=== PATIENT | male | born 1960 | race Caucasian/White ===

== ENCOUNTER 2019-12-24 12:12 | Emergency (ER) | payer MEDICARE, OTHER ==
[~2019-12-24] VITALS: Ht 175.3 cm; Wt 81.8 kg
[~2019-12-24 12:12] MED LIST: DICL100G15 TOP
== END 2019-12-25 17:45 | disposition left against medical advice (07) ==
LOC: ER 12-25 17:27
DX: M79.662 Pain in left lower leg (principal); Z53.21 Procedure and treatment not carried out due to patient leaving prior to being seen by health care provider

== ENCOUNTER 2024-09-22 16:48 | Emergency (ER) | payer BC, OTHER ==
[~2024-09-22 16:48] MED LIST changes: +APIX5TAB3 PO; -DICL100G15 TOP; +NICO-631 TD; +PANT40TA54 PO; +POTA-207 PO; +SILD100T70 PO; +TAMS-55 PO
== END 2024-09-22 18:04 | disposition left against medical advice (07) ==
LOC: ER 16:50
DX: L02.91 Cutaneous abscess, unspecified (principal); Z53.21 Procedure and treatment not carried out due to patient leaving prior to being seen by health care provider

== ENCOUNTER 2024-10-28 23:18 | Emergency (ER) | payer BC, OTHER ==
[~2024-10-28] VITALS: Ht 175.3 cm; Wt 70.5 kg
[2024-10-28 23:22] VITALS: TEMP 98.7
--- NOTE | 2024-10-28 23:41 | ELECTROCARDIOGRAPH REPORT ---
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
--- NOTE | 2024-10-29 00:38 | Physician Documentation ---
History of Present Illness ~ Chief Complaint: Shortness of Breath Stated Complaint: SOB Time Seen by MD: 00:33 Primary Medical Doctor: NONE HPI 64-year-old male, presenting with chest tightness and shortness of breath. He tells [place], when he started to feel lightheaded and dizzy. He sat down, he then marked out to his car to leave, and started to feel the sensation of chest tightness. He states it was hard to take a deep breath. He came into get checked out. He denies any other symptoms at that time. He denies any syncope, abdominal pain, nausea, sweating, palpitations, leg pain or swelling. He reports a history of some type of heart problem and or possibly a mass in his chest. He was supposed to get an endoscopy, but this never happened. Currently he states he feels quite a bit better. Medication Reconciliation Allergies: Coded Allergies: No Known Allergies (Unverified , 10/28/24) Scheduled Aspirin (Aspirin EC), 1 TAB PO DAILY, (Reported) Atorvastatin Calcium (Atorvastatin Calcium), 1 TAB PO DAILY, (Reported) Carvedilol (Carvedilol), 1 TAB PO BID, (Reported) Prednisone* (Prednisone*), 2 TAB PO DAILY Tamsulosin Hcl* (Flomax*), 1 TAB PO DAILY, (Reported) Scheduled PRN Sildenafil Citrate (Sildenafil Citrate), 0.5 TAB PO DAILY PRN for Per Protocol, (Reported) albuterol inhaler (Pro-Air Inhaler), 2 PUFFS INH Q4HPRN PRN for wheezing Miscellaneous Medications Tamsulosin Hcl* (Flomax*), 0.4 MG PO, (Reported) Discontinued Medications Apixaban (Eliquis), 5 MG PO BID Discontinued Reason: patient no longer taking Nicotine 14 MG Patch* (Habitrol 14 MG Patch*), 1 PATCH TD DAILY Discontinued Reason: patient no longer taking Pantoprazole Sodium (Pantoprazole Sodium), 40 MG PO BID Discontinued Reason: patient no longer taking Potassium Chloride* (K-Dur*), 1 TAB PO DAILY Discontinued Reason: patient no longer taking Past Medical History Past Medical History: No Pertinent History Past Surgical History: no surgical history Patient History: FH: alcoholism FATHER, MOTHER, Brother sister Alcohol Use: None Drug Use: methamphetamine Lives with: S/O Lives In: Home Occupation: employed Review of Systems Constitutional: Denies: fever Respiratory: Reports: shortness of breath Cardiovascular: Reports: chest pain Neurological: Reports: dizziness Physical Exam Vital Signs: Temperature: 98.7, Source: Oral, Heart Rate: 88, Respiratory Rate: 16, BP: 155/84, Pulse Oximetry: 94, Weight: 70.450 Physical Exam General: This is an overall well-appearing middle-aged man, not in distress HEENT: Atraumatic, oropharynx is moist Heart: Regular rate and rhythm, no murmur, normal-appearing peripheral perfusion Lungs: Clear breath sounds bilateral, normal work of breathing, normal oxygen saturation on room air Abdomen: Soft, nondistended, nontender all quadrants Extremities: Warm and well-perfused, no edema, no posterior calf tenderness Neuro: Alert and oriented, no focal deficits Psychiatric: Calm and cooperative with exam Progress Results/Orders Results/Orders Orders - QING WALLS MD Chest,Two Views (10/29/24 00:33) Cta Chest Pe (10/29/24 02:00) Completed Orders - QING WALLS MD Electrocardiogram (10/28/24 23:26) Cbc/Diff (10/29/24 00:33) D-Dimer (10/29/24 00:33) Chest,Two Views (10/29/24 00:33) Electrocardiogram (10/29/24 00:33) Hs Troponin I W Calculations (10/29/24 00:33) Hs Troponin I W Calculations (10/29/24 02:33) CMP (10/29/24 00:33) Cta Chest Pe (10/29/24 02:00) Iohexol 350mg/Ml 100ml (Omnipaque 350mg/ (10/29/24 02:03) Ipratropium/Albuterol Nebule (Ipratrop/A (10/29/24 03:13) Methylprednisolone Sod Succ (Solumedrol (10/29/24 04:05) Medications Received in ER Medications (Trade) Dose Ordered Sig/[place] Route PRN Reason Start Time Stop Time Status Last Admin Dose Admin (ipratrop/ albuterol 0.5-3(2.5) MG/3ml nebule) 3 ml ONCE STAT NEB 10/29/24 03:13 10/29/24 03:17 DC 10/29/24 03:23 3 ML (SoluMEDROL 125mg inj) 125 mg ONCE ONCE IV 10/29/24 04:05 10/29/24 04:06 DC 10/29/24 04:06 125 MG Vital Signs 10/28/24 10/29/24 10/29/24 10/29/24 23:22 00:24 01:33 01:45 Temp 98.7 Pulse 88 120 112 Resp 20 16 19 26 B/P (MAP) 155/84 127/97 (107) 103/61 (75) Pulse Ox 94 93 94 O2 Flow Rate 0 2.0 10/29/24 10/29/24 10/29/24 10/29/24 03:04 03:15 03:24 03:30 Pulse 112 115 114 Resp 26 29 18 22 B/P (MAP) 106/77 (87) Pulse Ox 95 96 100 O2 Delivery Room Air* Room Air* O2 Flow Rate 2.0 0 FiO2 N/A N/A Laboratory Tests Test 10/29/24 00:43 10/29/24 03:14 White Blood Count 18.6 H Red Blood Count 5.02 Hemoglobin 14.7 Hematocrit 43.9 Mean Corpuscular Volume 87.5 Mean Corpuscular Hemoglobin 29.3 Mean Corpuscular Hemoglobin Concent 33.5 Red Cell Distribution Width 15.7 H Platelet Count 363 Mean Platelet Volume 7.4 Neutrophils (%) (Auto) 76.0 H Lymphocytes (%) (Auto) 13.2 L Monocytes (%) (Auto) 5.2 Eosinophils (%) (Auto) 5.2 Basophils (%) (Auto) 0.4 Neutrophils # (Auto) 14.1 H Lymphocytes # (Auto) 2.5 Monocytes # (Auto) 1.0 H Eosinophils # (Auto) 1.0 H Basophils # (Auto) 0.1 CBC Comment D-Dimer 0.40 D-Dimer Comment Sodium Level 141 Potassium Level 4.0 Chloride Level 104 Carbon Dioxide Level 29.1 Anion Gap 8 Blood Urea Nitrogen 17 Creatinine 1.18 H Estimated GFR/1.73 m2 62 BUN/Creatinine Ratio 14.4 Glucose Level 112 H Calcium Level 8.9 Total Bilirubin 0.8 Aspartate Amino Transf (AST/SGOT) 20 Alanine Aminotransferase (ALT/SGPT) 23 Alkaline Phosphatase 93 Troponin I High Sensitivity 160 *H 147 *H Total Protein 7.8 Albumin 3.8 Globulin 4.0 Albumin/Globulin Ratio 1.0 L Chemistry Comments Troponin I High Sens Percent Delta 8 Troponin I Hi Sens Absolute Change -13 EKG/XRAY/CT/US/VASC/MRI EKG : Additional Comment I personally interpreted the EKG and this shows: Sinus tachycardic, rate 98, QTC 477, ST depression in leads V3 V4 through V5, T-wave inversion in inferior leads, no STEMI Chest X-Ray : Additional Comments I personally reviewed the x-ray, and it shows: No acute process including no focal consolidation, no mediastinal widening CT : Impression I personally reviewed the CT scan, and this shows no focal consolidation or pneumonia, no pulmonary edema, no PE Medical Decision Making Additional info obtained from: old records Findings I reviewed the patient's last admission, the patient was admitted in the past for stomach and chest pain, found to have right-sided heart failure. At that time his troponins were slightly elevated in the 100s range. Differential Dx:Considerations: Include: anxiety, asthma, bronchitis, cardiogenic shock, CHF, COPD, dysrhythmia, myocardial infarction, panic attack, pulmonary embolism, upper resp. infection Assessment The patient presents with an episode of shortness of breath and chest tightness. He does have a long history of smoking tobacco, and likely has some form of undiagnosed COPD. He was given a breathing treatment with improvement. His EKG does show some possibly concerning changes. His troponin is slightly elevated, however his repeat troponin is similar. Repeat EKG also shows no dynamic changes. On chart review he does have a history of a dilated heart and at his last admission he also had similarly elevated troponins. I suspect this is chronic. I doubt ACS as the primary cause of his symptoms today. His chest x- ray also shows no focal consolidation. A CT scan of the chest was then obtained which shows no PE or other acute abnormality as well. Given his significant improvement with breathing treatments, I suspect that this is undiagnosed COPD. He will be treated with steroids and given an albuterol inhaler. He was given outpatient follow up instructions and return precautions. Departure Time of Disposition: 04:43 Disposition: HOME / SELF CARE / HOMELESS Impression: Primary Impression: Acute exacerbation of chronic obstructive airways disease Condition: Improved Discharge Instructions: Chronic Obstructive Pulmonary Disease Exacerbation Referrals: NO PRIMARY CARE PROVIDER (PCP) Prescriptions Prednisone* (Prednisone*) 20 Mg Tablet 2 TAB PO DAILY for 4 Days, #8 TAB Prov: QING WALLS MD 10/29/24 albuterol inhaler (Pro-Air Inhaler) 8.5 Gm Inhaler 2 PUFFS INH Q4HPRN PRN for wheezing for 30 Days, #18 GM Prov: QING WALLS MD 10/29/24 albuterol inhaler (Pro-Air Inhaler) 8.5 Gm Inhaler 2 PUFFS INH Q4HPRN PRN for wheezing for 30 Days, #18 GM Prov: QING WALLS MD 10/29/24 Prednisone* (Prednisone*) 20 Mg Tablet 2 TAB PO DAILY for 4 Days, #8 TAB Prov: QING WALLS MD 10/29/24 Education Educated: Patient Educated regarding: diagnosis, treatment, need for follow up Signature Scribe Signature: [email or web address] Attestation: QING Fink MD Oct 29, 2024 00:38
[2024-10-29 00:49] LABS: BASOPHILS # (AUTO) 0.1 X10'3 (0-0.2); BASOPHILS % (AUTO) 0.4 % (0-1); EOSINOPHILS % (AUTO) 5.2 % (0-6); HEMATOCRIT 43.9 % (42.0-52.0); HEMOGLOBIN 14.7 g/dl (14.0-17.9); LYMPHOCYTES # (AUTO) 2.5 X10'3 (1.1-4.8); LYMPHOCYTES % (AUTO) 13.2 % (21-51); MEAN CORPUSCULAR HEMOGLOBIN 29.3 PG (27.0-31.0); MEAN CORPUSCULAR HGB CONC 33.5 g/dL (33.0-36.5); MEAN CORPUSCULAR VOLUME 87.5 FL (78-98); MEAN PLATELET VOLUME 7.4 FL (7.4-10.4); MONOCYTES % (AUTO) 5.2 % (2-12); NEUTROPHILS # (AUTO) 14.1 X10'3 (1.8-7.7); PLATELET COUNT 363 X10'3 (140-440); RED BLOOD COUNT 5.02 X10'6 (4.70-6.10); RED CELL DISTRIBUTION WIDTH 15.7 % (11.5-14.5); WHITE BLOOD COUNT 18.6 X10'3 (4.5-11.0)
--- NOTE | 2024-10-29 00:51 | ELECTROCARDIOGRAPH REPORT ---
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
--- NOTE | 2024-10-29 00:56 | RADIOLOGY REPORT ---
CHEST RADIOGRAPH Indication: CHEST PAIN Technique: Frontal and lateral view of the chest was obtained Comparison: None FINDINGS: Lines and Tubes: None Lungs: Clear Pleura: No effusion. No pneumothorax. Cardiomediastinal contours: Unremarkable Bones: Unremarkable IMPRESSION: 1. No evidence of acute disease.
[2024-10-29] MEDS ORDERED: TAMS-55 PO (01:02)
[2024-10-29] MEDS ORDERED: ASPI-1397 PO (01:02)
[2024-10-29] MEDS ORDERED: CARV3.122 PO (01:02)
[2024-10-29] MEDS ORDERED: ATOR10TA70 PO (01:02)
[2024-10-29 01:05] LABS: ALANINE AMINOTRANSFERASE 23 U/L (12-78); ALBUMIN 3.8 G/DL (3.4-5.0); ALKALINE PHOSPHATASE 93 IU/L (46-116); ANION GAP 8 (8-16); ASPARTATE AMINO TRANSFERASE 20 U/L (10-37); BILIRUBIN,TOTAL 0.8 MG/DL (0.1-1.0); BLOOD UREA NITROGEN 17 MG/DL (7-18); BUN/CREATININE RATIO 14.4 (10.0-20.0); CALCIUM 8.9 MG/DL (8.5-10.1); CHLORIDE 104 MMOL/L (99-107); CREATININE 1.18 MG/DL (0.60-1.10); GLUCOSE 112 MG/DL (70-104); SODIUM 141 MMOL/L (135-145); TOTAL CARBON DIOXIDE 29.1 MMOL/L (24-32); TOTAL PROTEIN 7.8 G/DL (6.4-8.2); eCRCL 63 ML/MIN; eGFR 62 ML/MIN
[2024-10-29] MEDS ORDERED: iohexol 350MG/ML 100ml bottle IV ONE (02:03)
--- NOTE | 2024-10-29 03:01 | RADIOLOGY REPORT ---
CTA Chest with intravenous contrast INDICATION: Shortness of breath, hypoxia, elevated troponin COMPARISON: CT CTA CHEST PE on DOS: 01/28/24 TECHNIQUE: Multidetector spiral CTA of the chest was performed of the chest with intravenous contrast . PULMONARY ANGIOGRAPHY PROTOCOL was utilized using a bolus-tracking technique centered on the main p ulmonary artery. Axial, coronal and sagittal multiplanar and MIP reformats were performed. Radiation Dose : 1. Chest: CTDI volume is 17.48 mGy. Dose-length product is 698.42 mGy*cm The dose indicators for CT are the volume Computed Tomography (CT) Dose Index (CTDIvol) and the Dose Length Product (DLP), and are measured in units of mGy and mGy-cm, respectively. These indicators are not patient dose, but values generated from the CT scanner acquisition factors. The report includes radiation exposure data for exposures received during this examination. Findings: Pulmonary artery: No pulmonary embolism. The main pulmonary artery measures 2.9 cm and the ascending thoracic aorta measures 3.5 cm. Atherosc lerotic vascular calcifications are identified. Lower neck: Normal thyroid. Lungs: Moderate diffuse bilateral centrilobular and paraseptal emphysematous changes noted. 8 mm pulm onary nodule within the medial anterior left upper lobe ( series 2, image 36). No focal consolidation , pleural effusion or pneumothorax. Heart/Vascular Structures: Normal heart size. No pericardial effusion. Lymph Nodes: No adenopathy Musculoskeletal: No acute osseous abnormality. Soft tissues: Normal. Upper abdomen: Limited portions of the upper abdomen are unremarkable. IMPRESSION: 1. No pulmonary embolism. 2. No acute thoracic finding. 3. Medial left upper lobe pulmonary nodule. Attention to follow-up recommended.
[2024-10-29 03:04] VITALS: BP 106/77
[2024-10-29] MEDS: ipratropium/albuterol 3ml nebule NEB STA (03:23)
[2024-10-29 03:24] VITALS: PULSE 115; RESP 18; O2SAT 96
[2024-10-29 03:30] VITALS: PULSE 114; RESP 22; O2SAT 100
[2024-10-29] MEDS: methylPREDNISolone sod succ 125mg/2ml vial IV ONE (04:06)
[2024-10-29] MEDS ORDERED: ALBU8HFA INH (04:45)
[2024-10-29] MEDS ORDERED: PRED20TA PO (04:45)
== END 2024-10-29 04:50 | disposition home or self-care (01) ==
LOC: ER 23:18
DX: J44.1 Chronic obstructive pulmonary disease with (acute) exacerbation (principal); R07.89 Other chest pain; Z87.891 Personal history of nicotine dependence; Z79.82 Long term (current) use of aspirin
CPT/HCPCS: 36415; 71046; 71275; 80053; 84484; 85025; 85379; 93005; 94640; 96374; 99285; J2919; Q9967; A4615